=== PATIENT | female | born 1990 ===

== ENCOUNTER 2016-06-21 21:58 | Emergency (ER) | payer MEDICAID ==
[2016-06-21 22:02] VITALS: BP 114/70; PULSE 91; RESP 16; TEMP 98.2; O2SAT 98
--- NOTE | 2016-06-21 22:08 | ED PDOC ---
HPI: CCC, URI, Sore Throat Time Seen by Provider: 06/21/16 22:06 Chief Complaint (Nursing): ENT Problem Chief Complaint (Provider): left ear pain History Per: Patient Additional Complaint(s): 25 year old female with no PMH presents with left ear pain and fullness to left ear for 4 days. No meds taken for pain relief, no fever or chills. Patient has muffled hearing, right ear unaffected. Past Medical History Reviewed: Historical Data, Nursing Documentation, Vital Signs Vital Signs: Last Vital Signs Temp 98.2 F 06/21/16 22:01 Pulse 91 H 06/21/16 22:01 Resp 16 06/21/16 22:01 BP 114/70 06/21/16 22:01 Pulse Ox 98 06/21/16 22:01 - Medical History PMH: Asthma - Surgical History Surgical History: No Surg Hx - Family History Family History: States: No Known Family Hx - Living Arrangements Living Arrangements: With Family - Social History Current smoker - smoking cessation education provided: No Alcohol: None Drugs: Denies - Home Medications Home Medications: Ambulatory Orders Medication Instructions Recorded No Known Home Med 06/21/16 - Allergies Allergies/Adverse Reactions: Allergies Allergy/AdvReac Type Severity Reaction Status Date / Time No Known Allergies Allergy Verified 10/23/15 17:46 Review of Systems ROS Statement: Except As Marked, All Systems Reviewed And Found Negative Constitutional: Negative for: Fever ENT: Positive for: Ear Pain (left ear pain for 4 days). Negative for: Throat Pain, Throat Swelling Respiratory: Negative for: Cough Gastrointestinal: Negative for: Vomiting Neurological: Negative for: Headache, Dizziness Physical Exam - Reviewed Nursing Documentation Reviewed: Yes Vital Signs Reviewed: Yes - Physical Exam Appears: Positive for: Well, Non-toxic, No Acute Distress Skin: Negative for: Rash Eye Exam: Positive for: EOMI, PERRL. Negative for: Normal appearance ENT: Positive for: Other (Right ear wnl, Left ear: edematous and erythematous canal with no exudate, TM intact, no perf or rupture, pain illicited with movement of external ear). Negative for: Nasal Congestion, Pharyngeal Erythema Neck: Positive for: Painless ROM Cardiovascular/Chest: Positive for: Regular Rate, Rhythm Respiratory: Positive for: Normal Breath Sounds Neurologic/Psych: Positive for: Alert, Oriented - Laboratory Results Urine POC: Negative - ECG O2 Sat by Pulse Oximetry: 98 Pulse Ox Interpretation: Normal Medical Decision Making Medical Decision Making: Impression: Left otitis externa Plan: test PO motrin Rx cortisporin otic, OTC NSAID's. ENT referral provided for follow up. Disposition - Clinical Impression Clinical Impression: Otitis externa - Patient ED Disposition Is Patient to be Admitted: No Counseled Patient/Family Regarding: Diagnosis, Need For Followup, Rx Given - Disposition Referrals: Don Sneed MD [Staff Provider] - [facility] [Outside] Disposition: Routine/Home Disposition Time: 22:06 Condition: STABLE Additional Instructions: Take rx meds as directed. Over the counter advil for pain as needed. Follow up with primary care doctor or with ear, nose and throat specialist for any persistent symptoms. Prescriptions: Neomycin/Polymyxin/Hydrocort [Cortisporin Otic Soln] 4 drop TOP BID #1 bottle Instructions: Otitis Externa (ED)
== END 2016-06-21 22:19 | disposition home or self-care (01) ==
LOC: H.ER 21:58
DX: H60.92 Unspecified otitis externa, left ear (principal)

== ENCOUNTER 2016-06-23 13:32 | Emergency (ER) | payer MEDICAID ==
[2016-06-23 14:19] VITALS: BP 144/63; PULSE 81; RESP 19; TEMP 98.3; O2SAT 99
--- NOTE | 2016-06-23 14:42 | ED PDOC ---
HPI: General Adult Time Seen by Provider: 06/23/16 14:13 Chief Complaint (Nursing): Flu-like Symptoms Chief Complaint (Provider): Flu-like Symptoms History Per: Patient History/Exam Limitations: no limitations Onset/Duration Of Symptoms: Days (x5 days) Current Symptoms Are (Timing): Still Present Additional Complaint(s): 25 y/o female presents to the emergency department with a complaint of a nasal congestion and left eat ache that started 06/19/2016. Patient then visited the ER on 06/21/2016, diagnosed with otitis externa, and prescribed ear drops. Reports mild improvement but has ear pain. Patient is now experiencing worsening of nasal congestion, left sided facial pain, and left eye redness. Denies head injury, fever, cough, vision changes, and hearing changes. Past Medical History Reviewed: Historical Data, Nursing Documentation, Vital Signs Vital Signs: Last Vital Signs Temp 98.3 F 06/23/16 14:14 Pulse 81 06/23/16 14:14 Resp 19 06/23/16 14:14 BP 144/63 06/23/16 14:14 Pulse Ox 99 06/23/16 14:50 - Medical History PMH: Asthma Denies: Chronic Kidney Disease - Surgical History Surgical History: No Surg Hx - Family History Family History: States: Unknown Family Hx - Home Medications Home Medications: Ambulatory Orders Medication Instructions Recorded Amoxicillin/Clavulanate [Augmentin 1 tab PO BID #20 tab 06/23/16 500 MG-125 MG] Cetirizine HCl/Pseudoephedrine 1 each PO DAILY PRN #10 tab.er.12h 06/23/16 [Zyrtec-D Tablet] Erythromycin 0.5% [Erythromycin 1 appl LEFTEYE QID #3 tube 06/23/16 0.5% Oint] Fluticasone Propionate [Flonase] 2 spr NS DAILY PRN #1 bottle 06/23/16 - Allergies Allergies/Adverse Reactions: Allergies Allergy/AdvReac Type Severity Reaction Status Date / Time No Known Allergies Allergy Verified 10/23/15 17:46 Review of Systems ROS Statement: Except As Marked, All Systems Reviewed And Found Negative Constitutional: Negative for: Fever, Other (hearing changes) Eyes: Positive for: Redness (Left eye). Negative for: Vision Change ENT: Positive for: Ear Pain (Mild Left), Nose Congestion, Other (Left-sided facial pain) Respiratory: Negative for: Cough Neurological: Negative for: Other (Head injury) Physical Exam - Reviewed Nursing Documentation Reviewed: Yes Vital Signs Reviewed: Yes - Physical Exam Appears: Positive for: Non-toxic, No Acute Distress Head Exam: Positive for: ATRAUMATIC, NORMOCEPHALIC Skin: Positive for: Normal Color, Warm, Dry ENT: Positive for: Sinus Pain/Drainage (Left-sided sinus pain and tenderness), Nasal Congestion. Negative for: Pharyngeal Erythema, Other (no mastoid tenderness b/l ) Cardiovascular/Chest: Positive for: Regular Rate, Rhythm. Negative for: Murmur Respiratory: Positive for: Normal Breath Sounds. Negative for: Accessory Muscle Use, Respiratory Distress Neurologic/Psych: Positive for: Alert, Oriented - ECG O2 Sat by Pulse Oximetry: 99 (RA) Pulse Ox Interpretation: Normal Medical Decision Making Medical Decision Making: Time: 14:13 Initial plan: --Evaluation Time: 14:40 Upon provider reevaluation patient is feeling better, is medically stable, and requires no further treatment in the ED at this time. Patient will be discharged with Rx for Augmentin 500mg-125mg, Zyrtec-D, Erythromycin 0.5% Oint, and Flonase . Counseling was provided and all questions were answered regarding diagnosis and need for follow up with referred clinics . There is agreement to discharge plan. Return if symptoms persist or worsen. Clinical Impression: Acute sinusitis and conjunctivitis Scribe Attestation: Documented by Yina Sy, acting as a scribe for Bennie Ziegler PA-C. Provider Scribe Attestation: All medical record entries made by the Scribe were at my direction and personally dictated by me. I have reviewed the chart and agree that the record accurately reflects my personal performance of the history, physical exam, medical decision making, and the department course for this patient. I have also personally directed, reviewed, and agree with the discharge instructions and disposition. Disposition - Clinical Impression Clinical Impression: Acute sinusitis, Conjunctivitis Counseled Patient/Family Regarding: Studies Performed, Rx Given - Disposition Referrals: [facility] [Outside] Disposition: Routine/Home Disposition Time: 14:40 Condition: STABLE Prescriptions: Amoxicillin/Clavulanate [Augmentin 500 MG-125 MG] 1 tab PO BID #20 tab Cetirizine HCl/Pseudoephedrine [Zyrtec-D Tablet] 1 each PO DAILY PRN #10 tab.er.12h PRN Reason: congestion Erythromycin 0.5% [Erythromycin 0.5% Oint] 1 appl LEFTEYE QID #3 tube Fluticasone Propionate [Flonase] 2 spr NS DAILY PRN #1 bottle PRN Reason: Allergy Symptoms Instructions: Sinusitis (ED), Conjunctivitis (ED) Forms: [employer] ED School/Work Excuse Print Language: JAPANESE
== END 2016-06-23 14:48 | disposition home or self-care (01) ==
LOC: H.ER 13:32
DX: J01.90 Acute sinusitis, unspecified (principal); H10.9 Unspecified conjunctivitis; J45.909 Unspecified asthma, uncomplicated

== ENCOUNTER 2016-09-30 12:01 | Emergency (ER) | payer MEDICAID ==
[2016-09-30 12:10] VITALS: BP 121/74; PULSE 94; RESP 16; TEMP 98; O2SAT 99
--- NOTE | 2016-09-30 12:46 | ED PDOC ---
HPI: General Adult Time Seen by Provider: 09/30/16 12:20 Chief Complaint (Nursing): Med Refill Chief Complaint (Provider): Asthma History Per: Patient History/Exam Limitations: no limitations Onset/Duration Of Symptoms: Days Have you had recent travel within the past 21 days to any of the following countries: [place], [place], [place] or [place]?: No Current Symptoms Are (Timing): Gone Now Additional History Per: Patient Additional Complaint(s): The patient is a 26yo female, past medical history of asthma, presents to the ED for evaluation s/p having an asthma attack yesterday. Patient reports she does not have an inhaler at home and she used her friend's inhaler yesterday with relief. States she presents today for an evaluation as well as a prescription for an albuterol pump. Patient states she does not have a PCP and is currently working on finding one. She offers no additional medical complaints. Past Medical History Reviewed: Historical Data, Nursing Documentation, Vital Signs Vital Signs: Last Vital Signs Temp 98 F 09/30/16 12:06 Pulse 94 H 09/30/16 12:06 Resp 16 09/30/16 12:06 BP 121/74 09/30/16 12:06 Pulse Ox 99 09/30/16 12:51 - Medical History PMH: Asthma Denies: Chronic Kidney Disease - Surgical History Surgical History: No Surg Hx - Family History Family History: States: Unknown Family Hx - Home Medications Home Medications: Ambulatory Orders Medication Instructions Recorded Amoxicillin/Clavulanate [Augmentin 1 tab PO BID #20 tab 06/23/16 500 MG-125 MG] Cetirizine HCl/Pseudoephedrine 1 each PO DAILY PRN #10 tab.er.12h 06/23/16 [Zyrtec-D Tablet] Erythromycin 0.5% [Erythromycin 1 appl LEFTEYE QID #3 tube 06/23/16 0.5% Oint] Fluticasone Propionate [Flonase] 2 spr NS DAILY PRN #1 bottle 06/23/16 Albuterol HFA [Ventolin HFA 90 1 puff IH BID PRN #2 unit 09/30/16 mcg/actuation (8 g)] - Allergies Allergies/Adverse Reactions: Allergies Allergy/AdvReac Type Severity Reaction Status Date / Time No Known Allergies Allergy Verified 10/23/15 17:46 Review of Systems ROS Statement: Except As Marked, All Systems Reviewed And Found Negative Respiratory: Negative for: Shortness of Breath Physical Exam - Reviewed Nursing Documentation Reviewed: Yes Vital Signs Reviewed: Yes - Physical Exam Appears: Positive for: Well, Non-toxic, No Acute Distress Head Exam: Positive for: ATRAUMATIC, NORMAL INSPECTION, NORMOCEPHALIC Skin: Positive for: Normal Color Neck: Positive for: Normal, Supple Cardiovascular/Chest: Positive for: Regular Rate, Rhythm Respiratory: Positive for: Normal Breath Sounds. Negative for: Wheezing, Respiratory Distress Neurologic/Psych: Positive for: Alert, Oriented. Negative for: Motor/Sensory Deficits - ECG O2 Sat by Pulse Oximetry: 99 (RA) Pulse Ox Interpretation: Normal Medical Decision Making Medical Decision Making: Time: 1240 Impression: Asthma exacerbation Plan: -- Patient given prescription for an albuterol pump and informed on the need ot have a PCP to follow up with for proper care. Scribe Attestation: Documented by Mulu Weinstein acting as a scribe for ALVARO Prasad Provider Attestation: All medical record entries made by the Scribe were at my direction and personally dictated by me. I have reviewed the chart and agree that the record accurately reflects my personal performance of the history, physical exam, medical decision making, and the department course for this patient. I have also personally directed, reviewed, and agree with the discharge instructions and disposition. Disposition - Clinical Impression Clinical Impression: Medication refill - Patient ED Disposition Is Patient to be Admitted: No Counseled Patient/Family Regarding: Need For Followup, Rx Given - Disposition Disposition: Routine/Home Disposition Time: 12:40 Condition: STABLE Prescriptions: Albuterol HFA [Ventolin HFA 90 mcg/actuation (8 g)] 1 puff IH BID PRN #2 unit PRN Reason: wheezing Instructions: Albuterol (By breathing) Forms: [facility] ED School/Work Excuse
== END 2016-09-30 12:54 | disposition home or self-care (01) ==
LOC: H.ER 12:01
DX: Z76.0 Encounter for issue of repeat prescription (principal)

== ENCOUNTER 2017-10-22 08:55 | Emergency (ER) | payer SELFPAY ==
[2017-10-22 09:04] VITALS: BMI 27.6
[2017-10-22] MEDS ORDERED: Sodium Chloride 0.9% 1,000 ML IV STA (09:30)
[2017-10-22 09:53] LABS: BASO % 0.5 % (0.0-2.0); EOS # 0.1 K/uL (0.0-0.7); EOS % 2.3 % (0.0-4.0); HEMOGLOBIN 12.5 g/dL (12.0-16.0); MEAN CELL VOLUME 75.6 fl (81.0-99.0); MEAN CORPUSCULAR HEMOGLOBIN 25.1 pg (27.0-31.0); MEAN CORPUSCULAR HGB CONC 33.2 g/dL (33.0-37.0); MEAN PLATELET VOLUME 7.4 fl (7.2-11.7); MONO # 0.3 K/uL (0.0-0.8); MONO % 9.6 % (0.0-10.0); NEUT # 1.9 K/uL (1.8-7.0); NEUT % 56.6 % (50.0-75.0); NRBC % 0.1 % (0.0-0.0); RBC 4.98 Mil/uL (3.80-5.20); RED CELL DISTRIBUTION WIDTH 14.2 % (11.5-14.5); WHITE BLOOD COUNT 3.4 K/uL (4.8-10.8)
[2017-10-22 10:04] LABS: ALB/GLOB RATIO 1.5 (1.0-2.1); ALBUMIN 4.2 g/dL (3.5-5.0); ALT/SGPT 29 U/L (9-52); AST/SGOT 36 U/L (14-36); BLOOD UREA NITROGEN 7 mg/dl (7-17); CALCIUM 8.9 mg/dL (8.4-10.2); GFR NON-AFRICAN AMERICAN > 60; LIPASE 39 U/L (23-300)
[2017-10-22] MEDS ORDERED: Iohexol 300 100 ML IJ ONE (10:50)
[2017-10-22] MEDS ORDERED: Sodium Chloride 0.9% 50 ML IV ONE (10:50)
--- NOTE | 2017-10-22 11:50 | ED PDOC ---
HPI: Abdomen Time Seen by Provider: 10/22/17 09:19 Chief Complaint (Nursing): Abdominal Pain Chief Complaint (Provider): abdominal pain vomiting diarrhea History Per: Patient History/Exam Limitations: no limitations Current Symptoms Are (Timing): Still Present Context: Food Location Of Pain/Discomfort: RLQ, Epigastric Quality Of Discomfort: Sharp, Cramping Associated Symptoms: Nausea, Vomiting, Diarrhea, Loss Of Appetite Exacerbating Factors: None Alleviating Factors: None Additional Complaint(s): 27yo female c/o abdominal discomfort associated w several episodes nonbloody vomiting and diarrhea since this past weekend. Denies fever, urinary symptoms or travel or spoiled food exposure. Pain epigastric and RLQ/, sharp and crampy., Abnormal Vaginal Bleeding: No Past Medical History Reviewed: Historical Data, Nursing Documentation, Vital Signs Vital Signs: Last Vital Signs Temp 98.5 F 10/22/17 09:04 Pulse 80 10/22/17 09:04 Resp 17 10/22/17 09:04 BP 118/85 10/22/17 09:04 Pulse Ox 98 10/22/17 09:04 - Medical History PMH: Asthma Denies: Chronic Kidney Disease - Family History Family History: States: Unknown Family Hx - Living Arrangements Living Arrangements: With Family - Home Medications Home Medications: Ambulatory Orders Medication Instructions Recorded Amoxicillin/Clavulanate [Augmentin 1 tab PO BID #20 tab 06/23/16 500 MG-125 MG] Cetirizine HCl/Pseudoephedrine 1 each PO DAILY PRN #10 tab.er.12h 06/23/16 [Zyrtec-D Tablet] Erythromycin 0.5% [Erythromycin 1 appl LEFTEYE QID #3 tube 06/23/16 0.5% Oint] Fluticasone Propionate [Flonase] 2 spr NS DAILY PRN #1 bottle 06/23/16 Albuterol HFA [Ventolin HFA 90 1 puff IH BID PRN #2 unit 09/30/16 mcg/actuation (8 g)] - Allergies Allergies/Adverse Reactions: Allergies Allergy/AdvReac Type Severity Reaction Status Date / Time No Known Allergies Allergy Verified 10/23/15 17:46 Review of Systems Constitutional: Negative for: Fever Cardiovascular: Negative for: Chest Pain Respiratory: Negative for: Shortness of Breath Gastrointestinal: Positive for: Nausea, Vomiting, Abdominal Pain, Diarrhea Genitourinary Female: Negative for: Dysuria Musculoskeletal: Negative for: Neck Pain, Back Pain Skin: Negative for: Rash Neurological: Negative for: Weakness, Numbness Psych: Negative for: Depression Physical Exam - Reviewed Nursing Documentation Reviewed: Yes Vital Signs Reviewed: Yes - Physical Exam Appears: Positive for: Well, Non-toxic, No Acute Distress Head Exam: Positive for: ATRAUMATIC, NORMAL INSPECTION, NORMOCEPHALIC Skin: Positive for: Normal Color, Warm, DRY Eye Exam: Positive for: EOMI, Normal appearance, PERRL ENT: Positive for: Normal ENT Inspection Neck: Positive for: Normal, Painless ROM Cardiovascular/Chest: Positive for: Regular Rate, Rhythm Respiratory: Positive for: CNT, Normal Breath Sounds Gastrointestinal/Abdominal: Positive for: Soft, Tenderness (RLQ). Negative for : Guarding, Rebound Back: Positive for: Normal Inspection Extremity: Positive for: Normal ROM Neurologic/Psych: Positive for: Alert, Oriented - Laboratory Results Result Diagrams: 10/22/17 09:44 10/22/17 09:44 Urine POC: Negative - ECG O2 Sat by Pulse Oximetry: 98 Pulse Ox Interpretation: Normal Medical Decision Making Medical Decision Making: workup for abd pain w RLQ tenderness initiated labs reviewed, mild leukopenia. chem unremarkable CT abd pelv obtained Accession No. : [id number] Patient Name / ID : MAILE HUNT / [id number] Exam Date : 10/22/2017 10:55:25 ( Approved ) Study Comment : Sex / Age : F / 27Y Creator : Yash Hernández MD Dictator : Yash Hernández MD Rag Cutting Machine Tender : Weather Strip Mechanic : Yash Hernández MD Approver2 : Report Date : 10/22/2017 11:46:37 My Comment : Date of service: 10/22/2017 PROCEDURE: CT Abdomen and Pelvis with contrast HISTORY: RLQ pain, vomiting diarrhea COMPARISON: Abdomen and pelvis CT with contrast 01/24/2016. TECHNIQUE: Following the intravenous administration of iodinated contrast material, a CT examination of the abdomen and pelvis performed from the domes of the diaphragms to the symphysis pubis with reformatted datasets provided in axial, sagittal and coronal planes. Oral contrast was not administered as per referring physician request. Contrast dose: Omnipaque 300, 95 cc Radiation dose: Total exam DLP = 621.82 mGy-cm. This CT exam was performed using one or more of the following dose reduction techniques: Automated exposure control, adjustment of the mA and/or kV according to patient size, and/or use of iterative reconstruction technique. FINDINGS: LOWER THORAX: Unremarkable. LIVER: Borderline diminished attenuation is seen throughout the liver suspicious for limited hepatic steatosis. No intrahepatic biliary dilatation or mass appreciable. GALLBLADDER AND BILE DUCTS: Unremarkable. PANCREAS: Unremarkable. No gross lesion or ductal dilatation. SPLEEN: Unremarkable. ADRENALS: Unremarkable. No mass. KIDNEYS AND URETERS: Unremarkable. No hydronephrosis. No solid mass. VASCULATURE: Unremarkable. No aortic aneurysm. BOWEL: Evaluation of the gastrointestinal tract is limited due the lack of oral contrast administration. No bowel obstruction, pericolic or perienteric reactive mesenteric changes. Shotty central mesenteric lymph nodes are identified, borderline enlarged with infrequent pericecal lymph nodes which are quite small. Potential for mesenteric adenitis exists. The stomach is poor due to decompression. APPENDIX: Normal appendix. PERITONEUM: Unremarkable. No free fluid. No free air. LYMPH NODES: Unremarkable. No enlarged lymph nodes. BLADDER: Unremarkable. REPRODUCTIVE: Intrauterine device in situ at the uterus. BONES: No acute fracture. OTHER FINDINGS: None. IMPRESSION: 1. Potential mesenteric adenitis though mild if present. 2. Normal appendix. 3. Borderline hepatic steatosis. 4. IUD in situ at uterus. improved in ED, Rx zofran and bentyl, followup GI and repeat WBC 10days to assure resolution Disposition - Clinical Impression Clinical Impression: Gastrointestinal distress, Vomiting - Patient ED Disposition Is Patient to be Admitted: No Counseled Patient/Family Regarding: Studies Performed, Diagnosis, Need For Followup - Disposition Disposition: Routine/Home Disposition Time: 11:51 Condition: STABLE Additional Instructions: Repeat bloodwork in 10 days to assure low WBC resolves/. Return to ER for any worse or new symptoms. Drink plenty of fluids.
[2017-10-22 12:39] VITALS: BP 125/80; PULSE 75; RESP 16; TEMP 97.9; O2SAT 100
== END 2017-10-22 12:39 | disposition home or self-care (01) ==
LOC: H.ER 08:55
DX: K59.9 Functional intestinal disorder, unspecified (principal); R11.10 Vomiting, unspecified
CPT/HCPCS: 74177; 80053; 81025; 83690; 85025; 96360; 99283; J1885; J2405; J7030; Q9967